=== PATIENT | female | born 2000 | race Asian ===

== ENCOUNTER 2020-03-26 22:42 | Emergency (ER) | payer BC, SELFPAY ==
--- NOTE | 2020-03-26 23:17 | RAD ---
EXAM: Single view of the chest HISTORY: Cough COMPARISON: None FINDINGS: Single view of the chest shows a normal sized cardiomediastinal silhouette. There is no madonna dence of consolidation, mass, or pleural effusion. The bones are unremarkable IMPRESSION: No evidence of acute cardiopulmonary disease
== END 2020-03-26 23:53 | disposition home or self-care (01) ==
LOC: ERS 22:42
DX: R05 Cough (principal); Z20.828 Contact with and (suspected) exposure to other viral communicable diseases
CPT/HCPCS: 71045